=== PATIENT | female | born 1990 | race Hispanic/Latino ===

== ENCOUNTER 2017-10-12 00:17 | Day surgery (SDC) | payer SELFPAY ==
[2017-10-12 01:32] VITALS: BP 109/68; TEMP 98.4; BMI 31.5
--- NOTE | 2017-10-12 02:17 | SS ---
DATE OF SERVICE: 10/12/2017 EVALUATING PHYSICIAN: Hipolito Stevens M.D. CHIEF COMPLAINT: Contractions, abdominal pressure. HISTORY OF PRESENT ILLNESS: Ms. Alex Sheffield is a 26-year-old G2, P1-0-0-1 with a reported estimated date of confinement of 10/15/2017 who presents complaining of contractions and pelvic pres sure. She is [place] speaking only and her history is obtained through [place] speaking friend. She has had care in [place], but has had no care here locally. She denies ruptured mem branes or vaginal bleeding. PAST OBSTETRICAL HISTORY: Includes a vaginal delivery at term, which she believes was a 1 week overd ue. No complications were encountered. For this , she appears to have had some care in [facility] and I see a single page at which time she had normal blood pressures and paid free for service. PAST MEDICAL HISTORY: Unremarkable. CURRENT MEDICATIONS: vitamins. PAST SURGICAL HISTORY: None. ALLERGIES: None. SOCIAL HISTORY: Denies tobacco or alcohol use. REVIEW OF SYSTEMS: She denies nausea, vomiting, fever, chills, vaginal bleeding or ruptured membrane s. PHYSICAL EXAMINATION: VITAL SIGNS: Stable. She is afebrile. ABDOMEN: Soft, nontender and gravid. Pelvic exam by the labor nurse shows the cervix to be 2 cm dilated, 50% effaced with the vertex presenting. heart tones are reassuring with good beat -to-beat variability and spontaneous accelerations. Irregular contractions are seen. They are mild to palpation. ASSESSMENT: 1. A 39-week intrauterine by dates. 2. No evidence of active labor at this time. 3. Limited care. PLAN: At this time, she has been given instructions to follow up with the [place] here [place]. She was given an address and a phone number. I have also gone ahead and drawn her lab s just in case she does not follow up with that visit. They are drawn and pending. She was given co mplete labor precautions and sent home in good condition.
[2017-10-12 02:45] LABS: Mean Corpuscular HGB CONC 34.5 g/dL (32.0-36.0); Mean Corpuscular Hemoglobin 29.6 pg (27.0-31.0); Mean Corpuscular Volume 85.8 fl (81.0-99.0); Platelet Count 226 thou/uL (130-400); RBC Distribution Width 13.9 % (11.5-14.5); Red Blood Cell (RBC) Count 3.72 mill/uL (4.20-5.40); White Blood Cell (WBC) Count 11.3 thou/uL (4.8-10.8)
[2017-10-12 02:54] LABS: Bilirubin Negative (Negative); Blood, Urine Negative (Negative); Clarity CLEAR (Clear); Glucose, Urine (Dipstick) Negative (Negative); Leukocyte Negative (Negative); Nitrite Negative (Negative); Protein, Urine (Dipstick) Trace mg/dL (Neg-Trace); Specific Gravity, Urine 1.024 (1.002-1.036)
[2017-10-12 03:08] LABS: Bacteria/HPF None Seen HPF (None Seen); RBC/HPF None Seen HPF (0-3); Squamous Epithelial None Seen HPF (0-3); WBC/HPF None Seen HPF (0-3)
[2017-10-12 03:09] LABS: Hyaline Casts/LPF NONE SEEN LPF (0-3 Hyaline)
[2017-10-12 03:22] LABS: HBSAB Concentration 0.22 mIU/mL; Hep B Surf AB Non-Reactive (NonReactive)
[2017-10-12 04:43] LABS: Syphilis Antibody Nonreactive (Nonreactive); Syphilis Antibody Index 0.04 S/CO (<1.00 Non-Reactive)
== END 2017-10-12 02:45 | disposition home or self-care (01) ==
LOC: L&D/OP 00:17
PROVIDERS: ATTEND Obstetrics & Gynecology
DX: O47.1 False labor at or after 37 completed weeks of gestation (principal); O09.33 Supervision of pregnancy with insufficient antenatal care, third trimester; Z3A.39 39 weeks gestation of pregnancy; Z79.899 Other long term (current) drug therapy
CPT/HCPCS: 36415; 81001; 85027; 86706; 86762; 86780; 86850; 86900; 86901; 87081; 99283